=== PATIENT | male | born 2000 | race Two or more races ===

== ENCOUNTER 2022-07-31 17:11 | Emergency (ER) | payer OTHER ==
[2022-07-31 17:23] VITALS: BP 150/68
--- NOTE | 2022-07-31 17:26 | ED Physician Documentation ---
History of Present Illness - Stated complaint Stated Complaint: HEAD INJ - Chief complaint Chief Complaint: Trauma Hd/Nk - History obtained from History obtained from: Patient - Additonal information Additional information: The patient comes to the emergency department chief complaint of left facial injury that happened yesterday. He states he was messing around and hit his left eyebrow on the corner of a bed frame. He states he felt as though he hit the bone and immediately had a lot of pain. He does not feel as though his eye itself was injured. He states that he was not injured anywhere else and did not lose consciousness. He denies neck pain. No rhinorrhea. He states that he has developed swelling and a "black eye" over the course of the last approximately 24 hours. States it hurts a lot and he finally decided he needed to come in and get it checked out. He does not think that his vision is changed in any way. No corrective lenses. No other complaints at this time. PD PAST MEDICAL HISTORY - Allergies Allergies/Adverse Reactions: Allergies Allergy/AdvReac Type Severity Reaction Status Date / Time No Known Drug Allergies Allergy Verified 07/31/22 17:20 PD ED PE NORMAL - Vitals Vital signs reviewed: Yes - General General: Alert and oriented X 3, No acute distress, Well developed/nourished - HEENT HEENT: PERRL, EOMI (No conjunctival injection, subconjunctival hemorrhage, or hyphema.), Moist mucous membranes, Other (Marked periorbital contusion on the left with moderate edema and deep missy black discoloration. 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, No motor deficit, No sensory deficit, Normal speech - Psych Psych: Normal mood, Normal affect Results - Vitals Vitals: Vital Signs - 24 hr 07/31/22 17:20 Temperature 36.5 C Heart Rate 77 Respiratory 16 Rate Blood Pressure 150/68 H O2 Saturation 98 Oxygen O2 Source Room air - Rads (name of study) Maxillofacial CT Relevant Findings:: Final report received, See rad report (Negative) PD Medical Decision Making - ED course Complexity details: reviewed results, re-evaluated patient, considered differential, d/w patient ED course: The patient was worked up in the ED with maxillofacial CT, which was read as negative by the radiologist. The patient was unable to complete the ED visual acuity exam because he could not open his eye enough. However, his eye exam in the emergency department had been normal, and after applying ice, the patient was able to open his eye enough to look around and felt that his vision was at baseline. We have discussed symptomatic management at home and the expected timeline for resolution of symptoms. We discussed the usual indications for follow-up and return. Departure - Departure Disposition: Home, Self Care Clinical Impression: Periorbital contusion of left eye Qualifiers: Encounter type: initial encounter Qualified Code(s): S05.12XA - Contusion of eyeball and orbital tissues, left eye, initial encounter Condition: Stable Instructions: Black Eye Comments: Your CT scan looks good. There is no evidence of a fracture of any of the bones of your face. The examination of your eye is reassuring and most likely, this is just a very bad bruise of your eyelid and surrounding tissues. This will take a few weeks to go away and most likely, the discoloration will track down your face with gravity. Please do not be alarmed, as this is fairly typical for the aftermath of these sorts of injuries. You may apply ice and use ibuprofen at home. Please avoid driving until you can open your eye fully. Discharge Date/Time: 07/31/22 18:20
--- NOTE | 2022-07-31 18:00 | CT Report ---
PROCEDURE: MAXILLOFACIAL WO INDICATIONS: L facial injury TECHNIQUE: Noncontrast 1.5 mm thick axial images acquired from the mandible through the frontal sinuses, with co frank and sagittal reformatting. For radiation dose reduction, the following was used: automated ex posure control, adjustment of mA and/or kV according to patient size. COMPARISON: None. FINDINGS: Image quality: Excellent. Bones and teeth: Orbital weaver are intact. Sinus weaver show no fracture or deformity. Nasal bones and septum are intact. Visualized portions of the mandible demonstrate no fractures or subluxation. Zygomatic arches are intact. Pterygoid plates are intact. Visualized portions of the skull base an d auditory canals are intact. Sinuses: Left maxillary sinus retention cyst. Sinuses otherwise are clear. Mastoids are clear. Soft tissues: Left orbital soft tissue swelling. No enlarged lymph nodes. No soft tissue lacerations or debris. Vascular: Visualized vascular structures appear normal in the absence of contrast. Bony vascular fo ramina and canals are intact. IMPRESSION: No fracture. Reviewed by: Desire Abarca MD on 07/31/2022 5:59 PM PDT Approved by: Desire Abarca MD on 07/31/2022 5:59 PM PDT Station ID: [id number]
== END 2022-07-31 18:20 | disposition home or self-care (01) ==
LOC: ED 17:11
DX: S05.12XA Contusion of eyeball and orbital tissues, left eye, initial encounter (principal); W22.8XXA Striking against or struck by other objects, initial encounter
CPT/HCPCS: 99283; 99284

== ENCOUNTER 2022-12-05 13:24 | Emergency (ER) | payer OTHER ==
[2022-12-05 13:53] LABS: MUDS CUTOFF CONCENTRATIONS CUTOFF CONC BELOW:
[2022-12-05 13:56] LABS: BILIRUBIN,URINE NEGATIVE (NEGATIVE); GLUCOSE, URINE (UA) NEGATIVE (NEGATIVE); KETONES,URINE (UA) NEGATIVE (NEGATIVE); LEUKOCYTE ESTERASE, URINE NEGATIVE (NEGATIVE); NITRITE,URINE NEGATIVE (NEGATIVE); OCCULT BLOOD,URINE NEGATIVE (NEGATIVE); PROTEIN,URINE NEGATIVE (NEGATIVE); UROBILINOGEN,URINE 0.2 (NORMAL) E.U./dL (NORMAL)
[2022-12-05 13:59] LABS: BASOPHILS % (AUTO) 0.5 %; HGB - HEMOGLOBIN 14.2 g/dL (14.0-18.0); LYMPHOCYTES # (AUTO) 1.1 10^3/uL (1.5-3.5); LYMPHOCYTES % (AUTO) 26.5 %; MEAN CORPUSCULAR HEMOGLOBIN 31.4 pg (27.0-31.0); MEAN CORPUSCULAR HGB CONC 33.8 g/dL (32.0-36.0); MEAN CORPUSCULAR VOLUME 92.9 fL (80.0-94.0); MEAN PLATELET VOLUME 11.3 fL (7.4-11.4); MONOCYTES # (AUTO) 0.4 10^3/uL (0.0-1.0); MONOCYTES % (AUTO) 9.1 %; NEUTROPHILS # (AUTO) 2.6 10^3/uL (1.5-6.6); NEUTROPHILS % (AUTO) 62.9 %; PLT - PLATELET COUNT 196 10^3/uL (130-450); RED BLOOD COUNT 4.52 10^6/uL (4.70-6.10); RED CELL DISTRIBUTION WIDTH 13.2 % (12.0-15.0); WHITE BLOOD COUNT 4.1 x10^3/uL (4.8-10.8)
[2022-12-05 14:01] LABS: CLARITY,URINE CLEAR (CLEAR)
[2022-12-05 14:05] LABS: AMPHETAMINE SCREEN,URINE NEGATIVE (NEGATIVE); BARBITURATE SCREEN,UR NEGATIVE (NEGATIVE); BENZODIAZEPINES SCREEN, URINE NEGATIVE (NEGATIVE); COCAINE SCREEN URINE NEGATIVE (NEGATIVE); METHADONE SCREEN, URINE NEGATIVE (NEGATIVE); METHAMPHETAMINES SCREEN, URINE NEGATIVE (NEGATIVE); OPIATE SCREEN, URINE NEGATIVE (NEGATIVE); OXYCODONE SCREEN, URINE NEGATIVE (NEGATIVE); PROPOXYPHENE SCREEN, URINE NEGATIVE (NEGATIVE); THC CANNABINOID SCREEN, URINE NEGATIVE (NEGATIVE); TRICYCLIC ANTIDEPRESSANT,URINE NEGATIVE (NEGATIVE)
[2022-12-05 14:16] LABS: ACETAMINOPHEN 0.2 ug/mL; ALBUMIN 4.4 g/dL (3.2-5.5); ALBUMIN/GLOBULIN RATIO 1.5 (1.0-2.2); ALKALINE PHOSPHATASE 44 IU/L (42-121); ALT ALANINE AMINOTRANSFERASE 17 IU/L (10-60); AST ASPARTATE AMINOTRANSFERASE 18 IU/L (10-42); BILIRUBIN,TOTAL 0.4 mg/dL (0.2-1.0); BUN - BLOOD UREA NITROGEN 13 mg/dL (6-20); CARBON DIOXIDE - CO2 29 mmol/L (21-32); CHLORIDE 102 mmol/L (101-111); CREATININE 0.7 mg/dL (0.6-1.3); ETOH - ETHANOL < 10.0 mg/dL; GFR - MDRD 142 (>89); GLUCOSE 99 mg/dL (74-104); LIPASE 14 U/L (11-82); POTASSIUM 3.5 mmol/L (3.5-4.5); SODIUM 136 mmol/L (135-145); TOTAL PROTEIN 7.4 g/dL (6.4-8.9)
[2022-12-05 14:21] LABS: SALICYLATE < 1.5 mg/dL
--- NOTE | 2022-12-05 14:22 | ED Physician Documentation ---
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 He went to a local walk-in clinic and was advised ER evaluation. [place] He is quite isolated from friends and family. [place]. He has had some passive thoughts of self-harm though he has never acted on them. He has no active plan[place] No access to guns knives or other weapons. He states his goal in presenting to the emergency department is simply to get some help. He does not want to be initiated on medications. He feels that the only thing that would help his depression [place]. He has not yet spoken to [place] [facility] or mental health [place]. He presents with his friend whom he calls a good support. Review of Systems Constitutional: reports: Reviewed and negative Throat: reports: Reviewed and negative Cardiac: reports: Reviewed and negative Respiratory: reports: Reviewed and negative GI: reports: Reviewed and negative Neurologic: reports: Reviewed and negative Psychiatric: reports: Depressed. denies: Homicidal, Hallucinations, Delusions, Anxiety, Insomnia PD PAST MEDICAL HISTORY - Past Medical History Past Medical History: Yes Cardiovascular: None Respiratory: None Neuro: None Endocrine/Autoimmune: None GI: None : None HEENT: None Psych: None Musculoskeletal: None Derm: None - Past Surgical History Past Surgical History: No - Present Medications Home Medications: Ambulatory Orders Medication Instructions Recorded Confirmed No Known Home Medications 12/05/22 12/05/22 - Allergies Allergies/Adverse Reactions: Allergies Allergy/AdvReac Type Severity Reaction Status Date / Time No Known Drug Allergies Allergy Verified 12/05/22 13:34 - Social History Does the pt smoke?: No Smoking Status: Never smoker Does the pt drink ETOH?: Yes Does the pt have substance abuse?: No - Immunizations Immunizations are current?: Yes PD ED PE NORMAL - General General: Alert and oriented X 3, No acute distress, Well developed/nourished - HEENT HEENT: PERRL - Neck Neck: Supple, no meningeal sign - Cardiac Cardiac: RRR, No murmur - Respiratory Respiratory: No respiratory distress - Abdomen Abdomen: Normal bowel sounds, Soft, Non tender, Non distended - Derm Derm: Normal color, Warm and dry, No rash - Extremities Extremities: No deformity - Neuro Neuro: Alert and oriented X 3 - Psych Psych: Normal mood, Normal affect (Pleasant gentleman. Future thinking. No active SI or HI. [place]orses [place] Results - Vitals Vitals: Vital Signs - 24 hr 12/05/22 13:28 Temperature 36.5 C Heart Rate 54 L Respiratory 16 Rate Blood Pressure 116/49 L O2 Saturation 100 Oxygen O2 Source Room air - Labs Labs: Laboratory Tests 12/05/22 12/05/22 12/05/22 13:44 13:47 13:47 WBC 4.1 L RBC 4.52 L Hgb 14.2 Hct 42.0 MCV 92.9 MCH 31.4 H MCHC 33.8 RDW 13.2 Plt Count 196 MPV 11.3 Neut # (Auto) 2.6 Lymph # (Auto) 1.1 L Mclean # (Auto) 0.4 Eos # (Auto) 0.0 Baso # (Auto) 0.0 Absolute Nucleated RBC 0.00 Nucleated RBC % 0.0 Sodium 136 Potassium 3.5 Chloride 102 Carbon Dioxide 29 Anion Gap 5.0 L BUN 13 Creatinine 0.7 Estimated GFR (MDRD) 142 Glucose 99 Calcium 10.0 Total Bilirubin 0.4 AST 18 ALT 17 Alkaline Phosphatase 44 Total Protein 7.4 Albumin 4.4 Globulin 3.0 Albumin/Globulin Ratio 1.5 Lipase 14 TSH 1.85 Urine Color YELLOW Urine Clarity CLEAR Urine pH 6.0 Ur Specific [place] 1.015 Urine Protein NEGATIVE Urine Glucose (UA) NEGATIVE Urine Ketones NEGATIVE Urine Occult Blood NEGATIVE Urine Nitrite NEGATIVE Urine Bilirubin NEGATIVE Urine Urobilinogen 0.2 (NORMAL) Ur Leukocyte Esterase NEGATIVE Ur Microscopic Review NOT INDICATED Urine Culture Comments NOT INDICATED Salicylates < 1.5 Urine Opiates Screen NEGATIVE Ur Oxycodone Screen NEGATIVE Urine Methadone Screen NEGATIVE Ur Propoxyphene Screen NEGATIVE Acetaminophen 0.2 Ur Barbiturates Screen NEGATIVE Ur Tricyclics Screen NEGATIVE Ur Phencyclidine Scrn NEGATIVE Ur Amphetamine Screen NEGATIVE U Methamphetamines Scrn NEGATIVE U Benzodiazepines Scrn NEGATIVE Urine Cocaine Screen NEGATIVE U Cannabinoids Screen NEGATIVE Ethyl Alcohol < 10.0 PD Medical Decision Making - ED course Complexity details: reviewed results, re-evaluated patient, d/w patient ED course: Very pleasant and future thinking 22-year-old male presents emergency department for evaluation of depressive symptoms that been present now for 2 years since arriving in [employer] assignment here on [facility]. He is expecting to be here another 2 to 3 years. [place]. He has had brief thoughts of self-harm but is never enacted them. He has no plan. Today in the emergency department we did obtain the usual routine mental health screening labs which per my interpretation showed no acute abnormalities. I discussed with patient that as he is able to easily contract for safety, he may benefit from follow-up with [facility] medical and mental health there. He is hesitant to do this. I did offer to initiate an SSRI with him however he also does not want to initiate therapy. Subsequently I did have the patient seen by social work who feels that he is safe for discharge home. He will be paying privately as his parents are going to help, with counseling. The institutional research director on days has also reached out to the patient. This time he feels safe for discharge home. The usual emergent return precautions for concerns of self-harm or harm to others was discussed. Departure - Departure Disposition: Home, Self Care Clinical Impression: Depression Qualifiers: Depression Type: other depression Qualified Code(s): F32.89 - Other specified depressive episodes Condition: Stable Record reviewed to determine appropriate education?: Yes Instructions: ED Depression Comments: You were seen today in the emergency department because [place] have been depressed. However you have been able to clearly tell she do not wish to harm yourself. You were offered to start medications today but did not feel that they would be helpful at this juncture. It is important that you continue to follow-up with the institutional research director as well as mental health. Talk therapy can go a long way in helping manage depressive symptoms. If at any point you ever have thoughts of self-harm, or harm to others do not hesitate to immediately call 911, the National crisis suicide line at 988 or return immediately to the ER Forms: PCP List
[2022-12-05 14:26] LABS: THYROID STIMULATING HORMONE 1.85 uIU/mL (0.34-5.60)
[2022-12-05 15:19] VITALS: BP 114/54; O2SAT 98
== END 2022-12-05 15:17 | disposition home or self-care (01) ==
LOC: ED 13:24
DX: F32.89 Other specified depressive episodes (principal); Z20.822 Contact with and (suspected) exposure to COVID-19
CPT/HCPCS: 36415; 80053; 80306; 80307; 80320; 80329; 81001; 81003; 83690; 84443; 85025; 87086; 99283